=== PATIENT | female | born 1935 | race Caucasian/White ===

== ENCOUNTER → 2016-05-22 | Outpatient (CLI) | payer MEDICARE ==
--- NOTE | 2016-05-22 09:22 | MR ---
EXAMINATION TYPE: MR MRCP DATE OF EXAM: 05/22/2016 9:08 AM COMPARISON: MRI 03/05/2016 HISTORY: Abdominal pain Standard multiplanar, multisequence MRI departmental protocol Multiplanar, multisequence MRCP was performed.. FINDINGS: Cystic pancreatic lesion again noted. Appears stable in size. There appears to be gallbladder sludge and multiple gallstones. Visualized portion of the kidneys, adrenal glands, and liver demonstrate no definite acute process. T iny lesion involving the dome of the liver measuring 3 mm too small to characterize. 3 mm mid cortica l posterior right renal lesion likely related to simple cyst. Findings retrospectively stable. Small hiatal hernia noted. Heart is enlarged. 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 The biliary tree appears to be of normal course and caliber. No intrahepatic biliary ductal dilation. Disc protrusion paracentrally to the left T12-L1 IMPRESSION: 1. The biliary tree is of normal course and caliber with no intrahepatic biliary ductal dilation. 2. Stable cystic lesion involving the pancreas. 3. Gallbladder sludge and evidence of cholelithiasis 4. Disc protrusion paracentrally left T12-L1 and paracentrally to the right L1-L2.
== END | disposition home or self-care (01) ==
LOC: RADMRIMAIN 08:06
PROVIDERS: ATTEND Internal Medicine Gastroenterology
DX: K86.2 Cyst of pancreas (principal); K80.20 Calculus of gallbladder without cholecystitis without obstruction; K82.8 Other specified diseases of gallbladder
CPT/HCPCS: 74181